=== PATIENT | male | born 1995 | race Caucasian/White ===

== ENCOUNTER 2018-03-11 13:11 | Emergency (ER) | payer OTHER ==
[~2018-03-11] VITALS: Ht 188 cm; Wt 99.8 kg
[2018-03-11 14:05] VITALS: BP 146/106
[2018-03-11] MEDS ORDERED: LIDOCAINE 1% PF 2 ML VIAL. INJ ONE (15:00)
--- NOTE | 2018-03-11 16:23 | PHYS DOC ---
Past Medical History Past Medical History: No Pertinent History Past Surgical History: No Surgical History Alcohol Use: Occasionally Drug Use: Marijuana Adult General Chief Complaint Chief Complaint: LACERATION/AVULSION HPI HPI Patient is a 23 year old male who presents to the emergency department with complaints of a laceration between his second and third digits of his left hand. Patient states he was at work picking up a glass thermometer when it broke in his hand and cut his finger. Patient denies any numbness or tingling. He is unsure of when his last tetanus shot was. Review of Systems Review of Systems Musculoskeletal: Denies back pain or joint pain [] Integument:See HPI Neurologic: Denies headache, focal weakness or sensory changes [] All other systems were reviewed and found to be within normal limits, except as documented in this note. Current Medications Current Medications Current Medications Medications (Trade) Dose Ordered Sig/Omega Start Time Stop Time Status Last Admin Dose Admin Lidocaine HCl (Xylocaine-Mpf 1% 2ml Vial) 4 ml 1X ONCE 03/11/18 15:00 03/11/18 15:01 DC 03/11/18 15:00 4 ML Allergies Allergies Allergies Uncoded Allergies Type Severity Reaction Last Updated Verified INTERNAL STITCHES Allergy Intermediate "GAVE ME AN INFECTION" 03/11/18 Physical Exam Physical Exam Constitutional: Well developed, well nourished, no acute distress, non-toxic appearance. [] HENT: Normocephalic, atraumatic, bilateral external ears normal, nose normal. [] Eyes: PERRLA, conjunctiva normal, no discharge. [] Lungs & Thorax: Respirations even and regular Skin: Warm, dry, no erythema, no rash, 2 cm laceration noted between 2nd and 3rd digits of L hand, bleeding controlled by bandage in place [] Extremities: No tenderness, no cyanosis, no clubbing, ROM intact, no edema. [] Neurologic: Alert and oriented X 3, normal motor function, normal sensory function, no focal deficits noted. [] Psychologic: Affect normal, judgement normal, mood normal. [] Current Patient Data Vital Signs Vital Signs Date Time Temp Pulse Resp B/P (MAP) Pulse Ox O2 Delivery O2 Flow Rate FiO2 03/11/18 14:05 97.5 77 18 146/106 (119) 96 Room Air 97.5 EKG EKG [] Radiology/Procedures Radiology/Procedures [] Course & Med Decision Making Course & Med Decision Making Pertinent Labs and Imaging studies reviewed. (See chart for details) dx: left hand laceration laceration repair as documented. No foreign body present after copious irrigation and exploration. Follow up with work comp doctor in 10 days to have sutures removed. Return to ED if symptoms worsen. Patient verbalized an understanding of home care, medications, follow-up, and return to ED instructions and was in agreement with the plan of care. [] Dragon Disclaimer Dragon Disclaimer This electronic medical record was generated, in whole or in part, using a voice recognition dictation system. Departure Departure Impression: Primary Impression: Laceration of hand without complication, excluding fingers Additional Impression: Tetanus toxoid vaccination administered at current visit Disposition: HOME, SELF-CARE Condition: STABLE Referrals: UNKNOWN PCP NAME (PCP) Patient Instructions: Laceration Care, Adult, [id number], VIS, Tetanus, Diphtheria, and Pertussis (Tdap) - CDC Additional Instructions: Follow-up with Workmen's Comp. doctor through the school district in 10 days to have the sutures removed. Wear the aluminum finger splint that was applied today until the sutures are removed. Leave the dressing that was placed in the ER on for the next 24 hours then he may change the dressing and apply antibiotic ointment twice daily. Tylenol or ibuprofen as needed for pain. Return to the emergency room if your symptoms worsen. Laceration/Wound Repair Laceration/Wound Repair : Wound Location: upper extremity (L hand) Wound's Depth, Shape: superficial Wound Length (cm): 2 Wound Explored: clean Irrigated w/ Saline (ccs): 250 Betadine Prep?: Yes Anesthesia: 1% Lidocaine Volume Anesthetic (ccs): 4 Wound Debrided: minimal Wound Repaired With: sutures Suture Size/Type: 4:0 (ethilon) Number of Sutures: 5 Layer Closure?: No Sterile Dressing Applied?: No Splint Applied?: Yes (aluminum finger splint, no neurovascular compromise after application. ) Sling Applied?: No Progress pt tolerated procedure well Problem Qualifiers Primary Impression: Laceration of hand without complication, excluding fingers Encounter type: initial encounter Laterality: left Qualified Codes: S61.412A - Laceration without foreign body of left hand, initial encounter PAOLA SCANLON [employer] Mar 11, 2018 16:23
[2018-03-11] MEDS ORDERED: DIPHTH,PERTUSS(ACELL),TET TOX 0.5 ML DISP.SYRIN. VAX IM ONE (16:30)
[2018-03-11] MEDS ORDERED: NEOMY/BACITR/POLYMYXIN OINT PACKET. TP ONE (16:30)
== END 2018-03-11 16:56 | disposition home or self-care (01) ==
LOC: ER 13:11
DX: S61.412A Laceration without foreign body of left hand, initial encounter (principal); Z88.8 Allergy status to other drugs, medicaments and biological substances; W25.XXXA Contact with sharp glass, initial encounter; Y93.89 Activity, other specified; Y92.89 Other specified places as the place of occurrence of the external cause; Y99.8 Other external cause status
CPT/HCPCS: 12001; 90471; 90715; 99283-25

== ENCOUNTER 2018-03-21 09:24 | Emergency (ER) | payer OTHER ==
[~2018-03-21] VITALS: Ht 177.8 cm; Wt 99.8 kg
[2018-03-21 09:35] VITALS: BP 119/72
--- NOTE | 2018-03-21 09:58 | PHYS DOC ---
Past Medical History Past Medical History: No Pertinent History Past Surgical History: No Surgical History Alcohol Use: Occasionally Drug Use: Marijuana Adult General Chief Complaint Chief Complaint: SUTURE/STAPLE REMOVAL HPI HPI Patient is a 23 year old male who presents to the ER with need for suture removal from left hand. PT denies any drainage, redness, pain, or warmth of the site. He denies any numbness or tingling. Review of Systems Review of Systems Constitutional: Denies fever or chills [] Integument:See HPI Neurologic: Denies focal weakness or sensory changes [] Complete systems were reviewed and found to be within normal limits, except as documented in this note. Allergies Allergies Allergies Uncoded Allergies Type Severity Reaction Last Updated Verified INTERNAL STITCHES Allergy Intermediate "GAVE ME AN INFECTION" 03/11/18 Physical Exam Physical Exam Constitutional: Well developed, well nourished, no acute distress, non-toxic appearance. [] HENT: Normocephalic, atraumatic, bilateral external ears normal nose normal. [] Eyes: conjunctiva normal, no discharge. [] Skin: Warm, dry, no erythema, no rash; laceration between 2nd and 3rd digits of left hand edges are well approximated without redness or drainage present. [] Extremities: No tenderness, no cyanosis, no clubbing, ROM intact, no edema. [] Neurologic: Alert and oriented X 3, normal motor function, normal sensory function, no focal deficits noted. [] Psychologic: Affect normal, judgement normal, mood normal. [] EKG EKG [] Radiology/Procedures Radiology/Procedures 3 of 5 sutures were removed from wound site. Medially there was mild wound dehiscence beginning. The 2 plantar sutures were left in place and steri strips were placed over the dorsal portion of the laceration. Course & Med Decision Making Course & Med Decision Making Pertinent Labs and Imaging studies reviewed. (See chart for details) [] Dragon Disclaimer Dragon Disclaimer This electronic medical record was generated, in whole or in part, using a voice recognition dictation system. Departure Departure Impression: Primary Impression: Laceration of hand without complication, excluding fingers Additional Impression: Suture check Disposition: 01 HOME, SELF-CARE Condition: STABLE Referrals: UNKNOWN PCP NAME (PCP) Patient Instructions: Sutured Wound Care Additional Instructions: Return to the ER in 4 days for wound recheck and removal of the last 2 sutures. Tylenol or ibuprofen as needed for pain. Problem Qualifiers PAOLA SCANLON APRN Mar 21, 2018 09:58
== END 2018-03-21 10:05 | disposition home or self-care (01) ==
LOC: ER 09:24
DX: S61.218D Laceration without foreign body of other finger without damage to nail, subsequent encounter (principal); Z88.8 Allergy status to other drugs, medicaments and biological substances; X58.XXXD Exposure to other specified factors, subsequent encounter
CPT/HCPCS: 99282

== ENCOUNTER 2018-03-26 15:47 | Emergency (ER) | payer OTHER ==
[~2018-03-26] VITALS: Ht 188 cm; Wt 104.3 kg
[2018-03-26 16:12] VITALS: BP 153/91
--- NOTE | 2018-03-26 16:25 | PHYS DOC ---
Past Medical History Past Medical History: No Pertinent History Past Surgical History: No Surgical History Alcohol Use: Occasionally Drug Use: Marijuana Adult General Chief Complaint Chief Complaint: SUTURE/STAPLE REMOVAL HPI HPI Patient is a 23 year old male who presents to the ER for suture removal. He denies any fever, drainage, redness, warmth, or pain at the site. States that 3 of the sutures were removed 3 days ago in the ER Review of Systems Review of Systems Constitutional: Denies fever or chills [] Musculoskeletal: Denies joint pain [] Integument: Denies rash, redness, or warmth, See HPI [] Neurologic: Denies focal weakness or sensory changes [] All other systems were reviewed and found to be within normal limits, except as documented in this note. Allergies Allergies Allergies Uncoded Allergies Type Severity Reaction Last Updated Verified INTERNAL STITCHES Allergy Intermediate "GAVE ME AN INFECTION" 03/11/18 Physical Exam Physical Exam Constitutional: Well developed, well nourished, no acute distress, non-toxic appearance. [] HENT: Normocephalic, atraumatic, bilateral external ears normal, nose normal. [] Eyes: conjunctiva normal, no discharge. [] Skin: Warm, dry, no erythema, no rash, laceration of left hand between 2nd and third digits is without redness, warmth, or drainage, edges are well approximated with 2 sutures present. [] Extremities: No tenderness, no cyanosis, no clubbing, ROM intact, no edema. [] Neurologic: Alert and oriented X 3, normal motor function, normal sensory function, no focal deficits noted. [] Psychologic: Affect normal, judgement normal, mood normal. [] Current Patient Data Vital Signs Vital Signs Date Time Temp Pulse Resp B/P (MAP) Pulse Ox O2 Delivery O2 Flow Rate FiO2 03/26/18 16:12 98.7 75 16 153/91 (111) 96 Room Air 98.7 EKG EKG [] Radiology/Procedures Radiology/Procedures 2 sutures were removed from Left hand laceration site, no wound dehiscence, bleeding, or drainage. [] Course & Med Decision Making Course & Med Decision Making Pertinent Labs and Imaging studies reviewed. (See chart for details) [] Dragon Disclaimer Dragon Disclaimer This electronic medical record was generated, in whole or in part, using a voice recognition dictation system. Departure Departure Impression: Primary Impression: Encounter for removal of sutures Disposition: HOME, SELF-CARE Condition: STABLE Referrals: UNKNOWN PCP NAME (PCP) Patient Instructions: Suture Removal-Brief Additional Instructions: Continue to apply antibiotic ointment or mederma to the site to help reduce scarring. Follow up with your doctor as needed. Return to the ER if symptoms worsen. PAOLA SCANLON APRN Mar 26, 2018 16:25
== END 2018-03-26 16:59 | disposition home or self-care (01) ==
LOC: ER 15:47
DX: S61.412D Laceration without foreign body of left hand, subsequent encounter (principal); Z88.8 Allergy status to other drugs, medicaments and biological substances; X58.XXXD Exposure to other specified factors, subsequent encounter
CPT/HCPCS: 99281